=== PATIENT | male | born 1980 | race Caucasian/White ===

== ENCOUNTER 2016-09-04 00:46 | Emergency (ER) | payer SELFPAY ==
[~2016-09-04] VITALS: Ht 193 cm; Wt 103.0 kg
[2016-09-04 01:21] VITALS: BP 133/91
== END 2016-09-04 04:50 | disposition left against medical advice (07) ==
LOC: ER 00:51
DX: S00.93XA Contusion of unspecified part of head, initial encounter (principal); Z53.21 Procedure and treatment not carried out due to patient leaving prior to being seen by health care provider; V49.9XXA Car occupant (driver) (passenger) injured in unspecified traffic accident, initial encounter; Y93.89 Activity, other specified; Y99.8 Other external cause status; Y92.89 Other specified places as the place of occurrence of the external cause